=== PATIENT | male | born 1945 | race Caucasian/White ===

== ENCOUNTER 2016-08-06 10:37 | Inpatient (IN) | payer OTHER ==
[~2016-08-06] VITALS: Ht 170.2 cm; Wt 80.0 kg
[2016-08-06] MEDS ORDERED: ATOR40TA78 PO (12:08)
[2016-08-06] MEDS ORDERED: LISI-170 PO (12:08)
[2016-08-06] MEDS ORDERED: SODIUM CHLORIDE FLUSH 10ML SYR IVF ONE (12:30)
[2016-08-06 12:37] LABS: BLOOD UREA NITROGEN 6 mg/dL (7-18)
[2016-08-06 12:44] LABS: ASPARTATE AMINO TRANSFERASE 139 U/L (15-37)
[2016-08-06 12:45] LABS: IS PT STATUS REG ER OR PRE ER? YES
[2016-08-06] MEDS ORDERED: LORazepam 2 MG/ML, 1ML IVPush PRN (15:30)
[2016-08-06] MEDS ORDERED: FUROSEMIDE 40 MG/4 ML IV ONE (15:30)
[2016-08-06] MEDS ORDERED: ACETAMINOPHEN 325 MG TABLET PO PRN (15:30)
[2016-08-06] MEDS ORDERED: MORPHINE SULFATE 4 MG/ML, 1ML IVPush PRN (15:30)
[2016-08-06] MEDS ORDERED: OXYcodone IR 5MG TABLET PO PRN (15:30)
[2016-08-06] MEDS ORDERED: POLYETHYLENE GLYCOL 17 GM PACKET PO PRN (15:30)
[2016-08-06] MEDS ORDERED: DOCUSATE 100 MG CAPSULE PO PRN (15:30)
[2016-08-06 15:33] LABS: POTASSIUM,URINE RANDOM 17 mmol/L
[2016-08-06 15:34] VITALS: BP 123/83
[2016-08-06] MEDS ORDERED: hydrALAzine 20 MG/ML, 1ML IV PRN (16:00)
[2016-08-06 19:37] VITALS: BP 119/77
[2016-08-06 20:00] VITALS: BP 130/66
[2016-08-07 02:00] VITALS: BP 122/78
[2016-08-07 06:37] LABS: BLOOD UREA NITROGEN 5 mg/dL (7-18)
[2016-08-07 06:41] LABS: ASPARTATE AMINO TRANSFERASE 122 U/L (15-37)
[2016-08-07 06:55] VITALS: BP 114/73
[2016-08-07 07:02] LABS: ANISOCYTOSIS 1+
[2016-08-07] MEDS: LISINOPRIL 20 MG TABLET PO SCH (08:23)
[2016-08-07] MEDS ORDERED: PHYTONADIONE 5 MG TABLET PO ONE (10:00)
[2016-08-07] MEDS ORDERED: MAGNESIUM SULFATE PMX 2GM/50ML 50 ML IV ONE (10:50)
[2016-08-07] MEDS: THIAMINE 100MG TABLET PO SCH (12:31)
[2016-08-07] MEDS: FOLIC ACID 1 MG TABLET PO SCH (12:31)
[2016-08-07] MEDS: MULTIVIT.W/IRON, MINERALS ORAL SOL PO SCH (12:31)
[2016-08-07] MEDS ORDERED: FUROSEMIDE 40 MG/4 ML IV ONE (13:00)
[2016-08-07] MEDS ORDERED: FUROSEMIDE 20 MG/2 ML ONE (13:32)
[2016-08-07 15:20] VITALS: BP 109/67
[2016-08-07] MEDS: POTASSIUM CHLORIDE 20 MEQ TAB.ER.PRT PO SCH (18:16)
[2016-08-07 19:56] VITALS: BP 124/72
[2016-08-08 02:13] VITALS: BP 127/74
[2016-08-08 06:36] LABS: BLOOD UREA NITROGEN 6 mg/dL (7-18)
[2016-08-08 06:40] LABS: ASPARTATE AMINO TRANSFERASE 104 U/L (15-37)
[2016-08-08 06:47] LABS: DIFF TOTAL CELLS COUNTED 100 CELL DIFF
[2016-08-08 06:51] LABS: ANISOCYTOSIS 1+; VERIFY COUNTS? YES
[2016-08-08 08:19] VITALS: BP 113/69
[2016-08-08] MEDS: POTASSIUM CHLORIDE 20 MEQ TAB.ER.PRT PO SCH (08:23)
[2016-08-08] MEDS: THIAMINE 100MG TABLET PO SCH (08:23)
[2016-08-08] MEDS: FOLIC ACID 1 MG TABLET PO SCH (08:23)
[2016-08-08] MEDS: MULTIVIT.W/IRON, MINERALS ORAL SOL PO SCH (08:24)
[2016-08-08] MEDS: LISINOPRIL 20 MG TABLET PO SCH (08:25)
[2016-08-08 11:37] LABS: HEPATITIS C VIRUS ANTIBODY Nonreactive (Nonreactive)
[2016-08-08 13:57] VITALS: BP 105/66
[2016-08-08] MEDS ORDERED: FUROSEMIDE 40 MG/4 ML IV ONE (15:00)
[2016-08-08 18:50] VITALS: BP 112/73
[2016-08-09 01:41] VITALS: BP 106/62
[2016-08-09 05:53] LABS: ASPARTATE AMINO TRANSFERASE 107 U/L (15-37); BLOOD UREA NITROGEN 5 mg/dL (7-18)
[2016-08-09 07:09] VITALS: BP 111/64
[2016-08-09] MEDS: MULTIVIT.W/IRON, MINERALS ORAL SOL PO SCH (09:03)
[2016-08-09] MEDS: THIAMINE 100MG TABLET PO SCH (09:04)
[2016-08-09] MEDS: FOLIC ACID 1 MG TABLET PO SCH (09:04)
[2016-08-09] MEDS: LISINOPRIL 20 MG TABLET PO SCH (09:04)
[2016-08-09] MEDS ORDERED: SPIR25TA PO (09:27)
[2016-08-09] MEDS ORDERED: FURO-93 PO (09:27)
[2016-08-09] MEDS ORDERED: THIA100T6 PO (09:27)
[2016-08-09] MEDS ORDERED: MULT9LIQ3 PO (09:27)
[2016-08-09] MEDS ORDERED: FOLI-17 PO (09:27)
[2016-08-09] MEDS ORDERED: SPIRONOLACTONE 25 MG TABLET PO SCH (09:30)
[2016-08-09] MEDS ORDERED: FUROSEMIDE 20 MG/2 ML IV ONE (09:30)
== END 2016-08-09 15:00 | disposition home or self-care (01) | DRG 432 ==
LOC: ED 13:56 → EDIP 13:57 → ED 14:26 → 4WST 15:50 → DCLOUNGE 08-09 14:32
PROVIDERS: ADMIT Family Medicine; ATTEND Family Medicine
DX: K70.31 Alcoholic cirrhosis of liver with ascites (principal); E43 Unspecified severe protein-calorie malnutrition; I50.33 Acute on chronic diastolic (congestive) heart failure; D68.9 Coagulation defect, unspecified; E87.1 Hypo-osmolality and hyponatremia; N43.3 Hydrocele, unspecified; N50.89 Other specified disorders of the male genital organs; E83.42 Hypomagnesemia; D69.6 Thrombocytopenia, unspecified; E78.5 Hyperlipidemia, unspecified; E87.6 Hypokalemia; E78.00 Pure hypercholesterolemia, unspecified; F10.20 Alcohol dependence, uncomplicated; Y90.9 Presence of alcohol in blood, level not specified; I11.0 Hypertensive heart disease with heart failure; R26.2 Difficulty in walking, not elsewhere classified; R16.1 Splenomegaly, not elsewhere classified; K72.90 Hepatic failure, unspecified without coma; Z68.27 Body mass index [BMI] 27.0-27.9, adult; Z82.49 Family history of ischemic heart disease and other diseases of the circulatory system; Z87.891 Personal history of nicotine dependence; Z90.49 Acquired absence of other specified parts of digestive tract; Z79.899 Other long term (current) drug therapy; Z71.3 Dietary counseling and surveillance
CPT/HCPCS: 36415; 71010; 76700; 80053; 80061; 80074; 80307; 81001; 82436; 82550; 82607; 82746; 83735; 83880; 83930; 83935; 84100; 84133; 84300; 84443; 84484; 85025; 85610; 85730; 93005; 93306; 99285; J1940; J3475